=== PATIENT | male | born 1995 | race Caucasian/White ===

== ENCOUNTER 2016-10-27 18:57 | Emergency (ER) | payer OTHER ==
[~2016-10-27] VITALS: Ht 175.3 cm; Wt 68.5 kg
[2016-10-27 19:24] VITALS: Ht 175.3 cm; Wt 68.5 kg
[2016-10-27] MEDS ORDERED: DICY20TA59 PO (19:45)
[2016-10-27] MEDS ORDERED: HYDR25SU23 PR (19:45)
--- NOTE | 2016-10-27 19:50 | ERD ---
ER Documentation Chief Complaint Date/Time DATE: 10/27/16 TIME: 19:48 Chief Complaint Blood in stool X 1.5 days, HPI 20-year-old male presents here in emergency department for complaints of blood streaks in the stool for the last 2 days. Patient had history of colitis before. Patient is advised and abdominal pain. Patient denies any fever or chills. Patient denies any vomiting. Patient denies any ecchymosis. Patient denies any bruising. Patient denies any blood in the urine. Patient denies any flank pain. Patient denies any other symptoms. ROS All systems reviewed and are negative except as per history of present illness. Medications Home Meds Active Scripts Hydrocortisone Acetate (Anusol-Hc) 25 Mg Supp.rect, 1 SUPP AK BID, #24 SUPP.RECT Prov:JUAN CARLOS HITCHCOCK ENROLLED NURSE 10/27/16 Dicyclomine Hcl* (Bentyl*) 20 Mg Tablet, 20 MG PO QID, #20 TAB Prov:JUAN CARLOS HITCHCOCK NP 10/27/16 Allergies Allergies: Coded Allergies: No Known Allergies (Verified Allergy, 03/22/12) PMhx/Soc Anesthesia Reaction: No Hx Neurological Disorder: No Hx Respiratory Disorders: No Hx Cardiac Disorders: No Hx Miscellaneous Medical Probl: Yes (DEPRESSION, CONCUSIONS) Hx Alcohol Use: No Hx Substance Use: No Hx Tobacco Use: No FmHx Family History: No coronary disease, No diabetes, No other Physical Exam Vitals Vital Signs Date Time Temp Pulse Resp B/P Pulse Ox O2 Delivery O2 Flow Rate FiO2 10/27/16 19:24 98.4 67 16 128/78 99 Physical Exam GENERAL: The patient is well developed and appropriate for usual state of health, in no apparent distress. CHEST: Clear to auscultation bilaterally. There are no rales, wheezes or rhonchi. HEART: Regular rate and rhythm. No murmurs, clicks, rubs or gallops. No S3 or S4. ABDOMEN: Soft, nontender and nondistended. Good bowel sounds. No rebound or guarding. No gross peritonitis. No gross organomegaly or masses. No Wiggins sign or McBurney point tenderness. BACK: No midline or flank tenderness. EXTREMITIES: Equal pulses bilaterally. There is no peripheral clubbing, cyanosis or edema. No focal swelling or erythema. Full range of motion. Grossly neurovascularly intact. NEURO: Alert and oriented. Cranial nerves 2-12 intact. Motor strength in all 4 extremities with 5/5 strength. Sensation grossly intact. Normal speech and gait. SKIN: There is no apparent rash or petechia. The skin is warm and dry. No other bleeding symptoms noted. HEMATOLOGIC AND LYMPHATIC: There is no evidence of excessive bruising or lymphedema. No gross cervical, axillary, or inguinal lymphadenopathy.. RECTAL: No active bleeding hemorrhoids. No rectal tenderness noted. Good rectal tone noted. Procedures/MDM Medical decision making: Patient's blood in the stools nonspecific at this time , this time, no active bleeding hemorrhoids, no rectal bleeding noted, no symptoms of infection in the rectal area. Bleeding is controlled at this time. No symptoms or abdominal emergencies. Patient's abdominal exam is normal. Patient appears well and is hemodynamically stable. No other bleeding symptoms noted. Patient's vital signs are stable. I spoke with my attending physician, Dr. Ballard, patient is recommended to see a GI specialist for further evaluation , further management of his history of colitis. At this time, no further laboratory testing or radiology exams are not indicated at this time. Patient verbalized understanding of the plan, and will follow up with primary care doctor in 2 days for reevaluation of symptoms. Patient was given patient for Anusol and Bentyl, patient is advised to return to emergency department for any worsening symptoms. Departure Diagnosis: Primary Impression: Blood in the stool Condition: Stable Patient Instructions: Ulcerative Colitis JUAN CARLOS HITCHCOCK NP Oct 27, 2016 19:50
== END 2016-10-27 19:46 | disposition home or self-care (01) ==
LOC: E/R 18:57
DX: K92.1 Melena (principal)
CPT/HCPCS: 99283

== ENCOUNTER 2019-05-20 21:30 | Emergency (ER) | payer OTHER ==
[~2019-05-20] VITALS: Ht 175.3 cm; Wt 72.7 kg
[~2019-05-20 21:30] MED LIST: DICY20TA59 PO; HYDR25SU23 PR; NAPR-985 PO
[2019-05-20 21:34] VITALS: BP 149/99; PULSE 102; RESP 19; Ht 175.3 cm; Wt 72.7 kg
== END 2019-05-21 00:13 | disposition home or self-care (01) ==
LOC: FTE 21:30
DX: S09.90XA Unspecified injury of head, initial encounter (principal); R51 Headache; W50.0XXA Accidental hit or strike by another person, initial encounter; Y92.322 Soccer field as the place of occurrence of the external cause
CPT/HCPCS: 70450; Z7610